=== PATIENT | male | born 1965 | race Caucasian/White ===

== ENCOUNTER 2018-04-29 10:32 | Emergency (ER) | payer MEDICAID, OTHER ==
[~2018-04-29] VITALS: Ht 175.3 cm; Wt 113.0 kg
[2018-04-29 10:54] LABS: BASOPHILS # (AUTO) 0.1 X10'3 (0-0.2); BASOPHILS % (AUTO) 0.6 % (0-1); EOSINOPHILS # (AUTO) 0.2 X10'3 (0-0.9); EOSINOPHILS % (AUTO) 2.1 % (0-6); HEMOGLOBIN 16.6 g/dl (14.0-17.9); MEAN CORPUSCULAR HEMOGLOBIN 32.4 PG (27.0-31.0); MEAN CORPUSCULAR VOLUME 95.3 FL (78-98); MEAN PLATELET VOLUME 8.2 FL (7.4-10.4); MONOCYTES # (AUTO) 0.8 X10'3 (0-0.9); MONOCYTES % (AUTO) 7.5 % (2-12); NEUTROPHILS # (AUTO) 5.2 X10'3 (1.8-7.7); NEUTROPHILS % (AUTO) 50.8 % (42-75); PLATELET COUNT 197 X10'3 (140-440); RED BLOOD COUNT 5.13 X10'6 (4.70-6.10); RED CELL DISTRIBUTION WIDTH 13.4 % (11.5-14.5); WHITE BLOOD COUNT 10.3 X10'3 (4.5-11.0)
[2018-04-29 11:10] LABS: ALANINE AMINOTRANSFERASE 91 U/L (12-78); ALBUMIN 3.9 G/DL (3.4-5.0); ALKALINE PHOSPHATASE 110 IU/L (46-116); ANION GAP 9 (8-16); ASPARTATE AMINO TRANSFERASE 28 U/L (10-37); BILIRUBIN,TOTAL 0.3 MG/DL (0.1-1.0); BLOOD UREA NITROGEN 15 MG/DL (7-18); BUN/CREATININE RATIO 16.9 (5.4-32.0); CALCIUM 9.3 MG/DL (8.5-10.1); CHLORIDE 104 MMOL/L (99-107); CREATININE 0.89 MG/DL (0.60-1.10); GLUCOSE 111 MG/DL (70-104); MAGNESIUM 1.9 MG/DL (1.5-2.4); POTASSIUM 4.2 MMOL/L (3.5-5.1); SODIUM 140 MMOL/L (135-145); TOTAL CARBON DIOXIDE 27.3 MMOL/L (24-32); TOTAL PROTEIN 7.7 G/DL (6.4-8.2); eGFR 90 ML/MIN
[2018-04-29] MEDS ORDERED: AZIT-63 PO (11:26)
[2018-04-29 11:33] VITALS: BP 131/82
== END 2018-04-29 11:35 | disposition home or self-care (01) ==
LOC: ER 10:33
DX: J40 Bronchitis, not specified as acute or chronic (principal); F17.200 Nicotine dependence, unspecified, uncomplicated; Z88.0 Allergy status to penicillin; Z79.899 Other long term (current) drug therapy
CPT/HCPCS: 36415; 71045; 80053; 83735; 83880; 84484; 85025; 93005; 99284

== ENCOUNTER 2018-05-28 20:45 | Emergency (ER) | payer OTHER ==
[~2018-05-28] VITALS: Ht 175.3 cm; Wt 109.0 kg
[~2018-05-28 20:45] MED LIST: ONDA8TAB6 PO
[2018-05-28 21:18] LABS: BASOPHILS # (AUTO) 0.1 X10'3 (0-0.2); BASOPHILS % (AUTO) 0.9 % (0-1); EOSINOPHILS # (AUTO) 0.3 X10'3 (0-0.9); EOSINOPHILS % (AUTO) 2.8 % (0-6); HEMATOCRIT 47.8 % (42.0-52.0); HEMOGLOBIN 16.4 g/dl (14.0-17.9); LYMPHOCYTES % (AUTO) 41.2 % (21-51); MEAN CORPUSCULAR HEMOGLOBIN 32.9 PG (27.0-31.0); MEAN CORPUSCULAR HGB CONC 34.3 g/dL (33.0-36.5); MEAN CORPUSCULAR VOLUME 95.8 FL (78-98); MEAN PLATELET VOLUME 9.1 FL (7.4-10.4); MONOCYTES # (AUTO) 0.6 X10'3 (0-0.9); MONOCYTES % (AUTO) 6.1 % (2-12); NEUTROPHILS # (AUTO) 4.8 X10'3 (1.8-7.7); PLATELET COUNT 175 X10'3 (140-440); RED BLOOD COUNT 4.99 X10'6 (4.70-6.10); RED CELL DISTRIBUTION WIDTH 13.4 % (11.5-14.5); WHITE BLOOD COUNT 9.7 X10'3 (4.5-11.0)
[2018-05-28 21:30] LABS: ALANINE AMINOTRANSFERASE 73 U/L (12-78); ALBUMIN 3.9 G/DL (3.4-5.0); ALBUMIN/GLOBULIN RATIO 1.1 (1.1-1.5); ALKALINE PHOSPHATASE 115 IU/L (46-116); BILIRUBIN,TOTAL 0.7 MG/DL (0.1-1.0); BLOOD UREA NITROGEN 12 MG/DL (7-18); BUN/CREATININE RATIO 13.3 (5.4-32.0); CALCIUM 9.3 MG/DL (8.5-10.1); GLUCOSE 123 MG/DL (70-104); MAGNESIUM 1.8 MG/DL (1.5-2.4); TOTAL CARBON DIOXIDE 25.1 MMOL/L (24-32); TOTAL PROTEIN 7.4 G/DL (6.4-8.2); eGFR 89 ML/MIN
[2018-05-28 21:37] LABS: D-DIMER < 0.19 MG/L FEU (0-0.50)
[2018-05-28 21:56] LABS: ANION GAP 13 (8-16); ASPARTATE AMINO TRANSFERASE 39 U/L (10-37); CHLORIDE 102 MMOL/L (99-107); POTASSIUM 3.9 MMOL/L (3.5-5.1); SODIUM 140 MMOL/L (135-145)
[2018-05-28 21:58] VITALS: BP 116/64
== END 2018-05-28 22:47 | disposition left against medical advice (07) ==
LOC: ER 20:46
DX: R07.89 Other chest pain (principal); I10 Essential (primary) hypertension; F17.200 Nicotine dependence, unspecified, uncomplicated; F12.90 Cannabis use, unspecified, uncomplicated; Z88.0 Allergy status to penicillin; Z79.899 Other long term (current) drug therapy
CPT/HCPCS: 36415; 71045; 80053; 83735; 83880; 84484; 85025; 85379; 93005; 99284

== ENCOUNTER 2019-08-27 16:28 | Emergency (ER) | payer OTHER ==
[~2019-08-27] VITALS: Ht 175.3 cm; Wt 109.1 kg
[2019-08-27 16:40] VITALS: BP 144/79
--- NOTE | 2019-08-27 18:18 | NUR ---
pt in room. denies any headache at this time, but reports that it is on and off.
[2019-08-27] MEDS ORDERED: CYCL-1 PO (18:42)
[2019-08-27] MEDS ORDERED: IBUP-1984 PO (18:42)
== END 2019-08-27 18:53 | disposition home or self-care (01) ==
LOC: ER 16:28
DX: G43.909 Migraine, unspecified, not intractable, without status migrainosus (principal); R42 Dizziness and giddiness; I10 Essential (primary) hypertension; F12.90 Cannabis use, unspecified, uncomplicated; Z72.89 Other problems related to lifestyle; Z88.0 Allergy status to penicillin; Z79.899 Other long term (current) drug therapy
CPT/HCPCS: 70450; 99284